=== PATIENT | female | born 1985 | race Caucasian/White ===

== ENCOUNTER 2020-05-22 00:31 | Emergency (ER) | payer MEDICAID ==
[~2020-05-22] VITALS: Ht 177.8 cm; Wt 86.8 kg
[~2020-05-22 00:31] MED LIST: ADVIL200 MG PO; AMOXICILLIN 50500 MG PO; AMOXICILLIN 8751 TAB PO; DIFLUCAN200 MG PO; DOXYCYCLINE 10100 MG PO; NIZORAL CR 30GM TOP; TYLENOL 325MG325 MG PO
[2020-05-22 00:37] VITALS: BP 119/78; TEMP 99.2
[2020-05-22] MEDS ORDERED: DOXYCYCLINE 10100 MG PO (02:00)
[2020-05-22] MEDS ORDERED: NAPROSYN500 MG PO (02:00)
[2020-05-22 03:04] VITALS: PULSE 65
== END 2020-05-22 03:04 | disposition home or self-care (01) ==
LOC: COL.ER 00:31
DX: S90.852A Superficial foreign body, left foot, initial encounter (principal); L02.31 Cutaneous abscess of buttock; M25.561 Pain in right knee; M54.5 Low back pain; Z90.710 Acquired absence of both cervix and uterus; Z87.891 Personal history of nicotine dependence; Z88.7 Allergy status to serum and vaccine; W22.8XXA Striking against or struck by other objects, initial encounter; Y92.007 Garden or yard of unspecified non-institutional (private) residence as the place of occurrence of the external cause
CPT/HCPCS: J1885